=== PATIENT | male | born 1990 | race Caucasian/White ===

== ENCOUNTER 2016-07-12 18:40 | Emergency (ER) | payer OTHER ==
[~2016-07-12] VITALS: Wt 108.9 kg
[~2016-07-12 18:40] MED LIST: AMOXICILLIN500 M2 PO; AMOXICILLIN500 M3 PO; AMOXICILLIN500 MG PO; ANAPROX DS550 MG PO; CLINDAMYCIN HC300 MG PO; HYDROCODONE BIT1 T11 PO; IBU800 MG PO; MOTRIN800 MG PO; NAPROSYN500 MG PO; NKHM; NORCO 325 MG-51 TAB PO; PAXIL10 MG PO; PEN-V500 MG PO; PEN-VK500 MG PO; PENICILLIN VK500 MG PO; PENICILLIN-VK500 MG PO; PERIDEX 480 ML480 ML PO; Peridex 473 ML473 ML PO; TRAMADOL HCL50 MG PO; ULTRAM50 MG PO
[2016-07-12] MEDS ORDERED: Peridex 473 ML473 ML PO (19:04)
[2016-07-12] MEDS ORDERED: LIDOCAINE HCL100 M1 MM (19:04)
[2016-07-12] MEDS ORDERED: NAPROSYN500 MG PO (19:04)
[2016-07-12] MEDS ORDERED: PENICILLIN VK500 MG PO (19:10)
== END 2016-07-12 19:05 | disposition home or self-care (01) ==
LOC: ED 18:40
DX: K02.9 Dental caries, unspecified (principal); R03.0 Elevated blood-pressure reading, without diagnosis of hypertension; F17.200 Nicotine dependence, unspecified, uncomplicated

== ENCOUNTER 2016-11-16 11:48 | Emergency (ER) | payer OTHER ==
[~2016-11-16 11:48] MED LIST changes: +LIDOCAINE HCL100 M1 MM
[2016-11-16] MEDS ORDERED: NAPROSYN500 MG PO (12:46)
[2016-11-16] MEDS ORDERED: CEPHALEXIN500 M1 PO (12:46)
== END 2016-11-16 13:29 | disposition home or self-care (01) ==
LOC: ED 11:48
DX: S90.822A Blister (nonthermal), left foot, initial encounter (principal); S90.821A Blister (nonthermal), right foot, initial encounter; X58.XXXA Exposure to other specified factors, initial encounter; Y93.01 Activity, walking, marching and hiking; Y92.830 Public park as the place of occurrence of the external cause; Y99.8 Other external cause status

== ENCOUNTER 2017-01-06 09:41 | Emergency (ER) | payer OTHER ==
[~2017-01-06] VITALS: Ht 187.9 cm; Wt 106.6 kg
[~2017-01-06 09:41] MED LIST changes: +CEPHALEXIN500 M1 PO
[2017-01-06] MEDS ORDERED: CLARITIN10 MG PO (09:58)
[2017-01-06] MEDS ORDERED: FLONASE ALLERG9.9 ML NAS (09:58)
[2017-01-06] MEDS ORDERED: PREDNISONE10 MG PO (09:58)
[2017-01-06] MEDS ORDERED: ROBITUSSIN DM 105 ML PO (09:58)
== END 2017-01-06 10:55 | disposition home or self-care (01) ==
LOC: ED 09:41
DX: J20.9 Acute bronchitis, unspecified (principal); R03.0 Elevated blood-pressure reading, without diagnosis of hypertension; F17.200 Nicotine dependence, unspecified, uncomplicated

== ENCOUNTER 2017-08-09 09:58 | Emergency (ER) | payer OTHER ==
[~2017-08-09] VITALS: Ht 187.9 cm; Wt 105.2 kg
[~2017-08-09 09:58] MED LIST changes: +CLARITIN10 MG PO; +FLONASE ALLERG9.9 ML NAS; +PREDNISONE10 MG PO; +ROBITUSSIN DM 105 ML PO
[2017-08-09] MEDS ORDERED: SERTRALINE HYDR50 MG PO (10:01)
[2017-08-09] MEDS ORDERED: MIRTAZAPINE15 M2 PO (10:02)
== END 2017-08-09 10:04 | disposition home or self-care (01) ==
LOC: ED 09:58
DX: H91.8X2 Other specified hearing loss, left ear (principal); R03.0 Elevated blood-pressure reading, without diagnosis of hypertension; Z79.899 Other long term (current) drug therapy

== ENCOUNTER 2021-01-17 12:58 | Emergency (ER) | payer OTHER ==
[~2021-01-17] VITALS: Ht 187.9 cm; Wt 74.8 kg
[~2021-01-17 12:58] MED LIST changes: +ATORVASTATIN CA80 M1 PO; +GOOD SENSE ALLE10 M2 PO; +LISINOPRIL5 MG PO; +MIRTAZAPINE15 M2 PO; +OMEPRAZOLE40 MG PO; +SERTRALINE HYDR50 MG PO; +VITAMIN D350 MC2 PO
[2021-01-17] MEDS ORDERED: VIBRAMYCIN100 MG PO (14:17)
[2021-01-17] MEDS ORDERED: BACTRIM 400-801 EACH PO (14:17)
== END 2021-01-17 14:35 | disposition home or self-care (01) ==
LOC: ED 12:58
DX: L02.31 Cutaneous abscess of buttock (principal); Z79.899 Other long term (current) drug therapy; F17.200 Nicotine dependence, unspecified, uncomplicated

== ENCOUNTER 2024-07-18 20:22 | Emergency (ER) | payer OTHER ==
[~2024-07-18] VITALS: Ht 190.5 cm; Wt 99.8 kg
[~2024-07-18 20:22] MED LIST changes: +BACTRIM 400-801 EACH PO; +VIBRAMYCIN100 MG PO
[2024-07-18] MEDS ORDERED: PENICILLIN V POTASSIUM 500 MG TAB PO ONE (20:40)
[2024-07-18] MEDS ORDERED: Ondansetron Hydrochloride 4 MG TAB SL ONE (20:40)
[2024-07-18] MEDS ORDERED: Acetaminophen/Hydrocodone 5 MG/325 MG TABLET PO ONE (20:40)
[2024-07-18] MEDS ORDERED: PENICILLIN VK500 MG PO (20:42)
== END 2024-07-18 20:48 | disposition home or self-care (01) ==
LOC: ED 20:22
DX: K02.9 Dental caries, unspecified (principal); K08.89 Other specified disorders of teeth and supporting structures; I10 Essential (primary) hypertension; F32.A Depression, unspecified; E78.00 Pure hypercholesterolemia, unspecified

== ENCOUNTER 2024-09-14 09:53 | Emergency (ER) | payer OTHER ==
[~2024-09-14] VITALS: Ht 187.9 cm; Wt 104.3 kg
[2024-09-14] MEDS ORDERED: MELOXICAM15 MG PO (10:09)
[2024-09-14] MEDS ORDERED: AMOX-CLAV 875-1 EACH PO (10:09)
[2024-09-14] MEDS ORDERED: Acetaminophen/Oxycodone 5 MG/325 MG TABLET PO ONE (10:10)
[2024-09-14] MEDS ORDERED: Amoxicillin/Clavulanate Pota 875 MG TAB PO ONE (10:10)
== END 2024-09-14 10:15 | disposition home or self-care (01) ==
LOC: ED 09:53
DX: K04.7 Periapical abscess without sinus (principal); K02.9 Dental caries, unspecified; F17.290 Nicotine dependence, other tobacco product, uncomplicated; Z79.899 Other long term (current) drug therapy